=== PATIENT | male | born 1995 | race African-American/Black ===

== ENCOUNTER 2018-08-09 13:48 | Emergency (ER) | payer OTHER ==
[~2018-08-09] VITALS: Ht 160 cm; Wt 58.1 kg
[2018-08-09 14:45] LABS: PLATELET COUNT 169 K/uL (142-355)
[2018-08-09 14:58] LABS: POTASSIUM 3.4 mmol/L (3.6-5.2)
[2018-08-09 18:30] VITALS: BP 120/84; TEMP 98.7
== END 2018-08-09 18:36 | disposition home or self-care (01) ==
LOC: ED 13:48
PROVIDERS: Emergency Medicine
DX: K29.20 Alcoholic gastritis without bleeding (principal)
CPT/HCPCS: 36415; 80053; 81000; 82150; 83690; 85027; 96361; 96374; 99284; J3490; Q9963